=== PATIENT | male | born 1950 | race Caucasian/White ===

== ENCOUNTER 2018-09-19 16:45 | Inpatient (IN) | payer MEDICARE ==
[~2018-09-19] VITALS: Ht 182.9 cm; Wt 99.1 kg
[~2018-09-19 16:45] MED LIST: ACET325T21 PO; ACID1GRA3 PO; AMLO5TAB7 PO; ASCO500T6 PO; BISA10SU65 PR; CARV-39 PO; CARV25TA12 PO; DIGO125T PO; DOCU-131 PO; ENOX80SY4 SQ; FERR325T18 PO; FOLI-17 PO; FURO40TA6 PO; LABE5VIA13 IV; LINE600T37 PO; LISI5TAB7 PO; MAGN400T26 PO; METO25TA91 PO; METR500T PO; ONDA4VIA8 IVP; OXYC1TAB7 PO; OXYC5CAP2 PO; PIPE3.375 IV; POLY17PO5 PO; POTA20TA14 PO; Pharmacy Instruction MC; QUET25TA PO; THIA100T67 PO; TRAM50TA2 PO; ZINC220C5 PO
[2018-09-19 17:53] LABS: BASOPHILS # (AUTO) 0.04 x10^3/uL (0-0.1); BASOPHILS % (AUTO) 1 % (0-1); EOSINOPHILS # (AUTO) 0.25 x10^3/uL (0-0.4); EOSINOPHILS % (AUTO) 4 % (1-7); LYMPHOCYTES # (AUTO) 0.99 x10^3/uL (1-3.4); LYMPHOCYTES % (AUTO) 17 % (22-44); MD NO; MEAN CORPUSCULAR HGB CONC 33.5 g/dL (33.2-36.2); MEAN CORPUSCULAR VOLUME 89.6 fL (81-97); MEAN PLATELET VOLUME 8.4 fL (7.4-10.4); MONOCYTES # (AUTO) 0.72 x10^3/uL (0.2-0.8); MONOCYTES % (AUTO) 12 % (2-9); NEUTROPHILS # (AUTO) 4.02 x10^3/uL (1.8-6.8); NEUTROPHILS % (AUTO) 67 % (42-75); PLATELET COUNT 200 x10^3/uL (130-400); RED BLOOD COUNT 4.47 x10^6/uL (4.38-5.82); RED CELL DISTRIBUTION WIDTH 15.7 % (9.4-14.8)
[2018-09-19 18:01] LABS: ALBUMIN 2.9 g/dL (3.4-5.0); ANION GAP 10 mmol/L (5-15); CALCIUM 8.7 mg/dL (8.5-10.1); CHLORIDE 109 mmol/L (98-107); CREATININE 1.54 mg/dL (0.7-1.3)
[2018-09-19] MEDS ORDERED: FURO20TA3 PO (19:37)
[2018-09-19] MEDS ORDERED: APIX2.5T PO (19:37)
[2018-09-19] MEDS ORDERED: LISI-170 PO (19:37)
[2018-09-19] MEDS ORDERED: SODIUM CHLORIDE FLUSH 10ML SYR IVF PRN (20:00)
[2018-09-19] MEDS ORDERED: SODIUM CHLORIDE 0.9% 1,000 ML IV SCH (20:02)
[2018-09-19 20:20] VITALS: BP 142/78
[2018-09-19] MEDS ORDERED: POLYETHYLENE GLYCOL 17 GM PACKET PO PRN (20:30)
[2018-09-19] MEDS ORDERED: ACETAMINOPHEN 325 MG TABLET PO PRN (20:30)
[2018-09-19] MEDS ORDERED: ONDANSETRON 2MG/ML, 2ML IVPush PRN (20:30)
[2018-09-19] MEDS ORDERED: POTASSIUM CHLORIDE 20 MEQ TAB.ER.PRT PO ONE (20:30)
[2018-09-19] MEDS ORDERED: ONDANSETRON ODT 4 MG PO PRN (20:30)
[2018-09-19] MEDS ORDERED: DILTIAZEM 5 MG/ML, 5ML IVPush PRN (20:30)
[2018-09-19] MEDS ORDERED: DIGOXIN 0.25 MG/ML, 2ML IVPush ONE (20:30)
[2018-09-19 20:51] VITALS: BP 142/78
[2018-09-19] MEDS: BUMETANIDE 1 MG TABLET PO SCH (20:51)
[2018-09-19] MEDS: APIXABAN 2.5 MG TABLET PO SCH (20:52)
[2018-09-19] MEDS: ERYTHROMYCIN OPHTH 0.5%, 1GM EACHEYE SCH (20:52)
[2018-09-20] MEDS: ERYTHROMYCIN OPHTH 0.5%, 1GM EACHEYE SCH ×6 (00:11→22:02)
[2018-09-20 00:56] VITALS: BP 117/61
[2018-09-20 01:20] LABS: CULTURE INDICATED? NO; MICROSCOPIC AUTO
[2018-09-20] MEDS ORDERED: DIGOXIN 0.25 MG/ML, 2ML IVPush ONE (04:30)
[2018-09-20 05:17] LABS: CHLORIDE 111 mmol/L (98-107)
[2018-09-20 05:33] LABS: ANION GAP 10 mmol/L (5-15); CALCIUM 8.9 mg/dL (8.5-10.1); CHOL/HDL RATIO 5.3; CHOLESTEROL, TOTAL 170 mg/dL (140-239); CREATININE 1.44 mg/dL (0.7-1.3); HDL CHOL % 19 % (26-37); HDL CHOLESTEROL (DIRECT) 32 mg/dL (40-60); LDL CHOLESTEROL,CALCULATED 121 mg/dL (54-169); LDL/HDL RATIO 3.8 (0.5-3.0); TRIGLYCERIDES 87 mg/dL (50-200); VLDL CHOLESTEROL 17 mg/dL (0-25)
[2018-09-20] MEDS: APIXABAN 2.5 MG TABLET PO SCH ×2 (08:44→22:04)
[2018-09-20] MEDS: BUMETANIDE 1 MG TABLET PO SCH ×2 (08:44→22:04)
[2018-09-20] MEDS ORDERED: POTASSIUM CHLORIDE 20 MEQ TAB.ER.PRT PO ONE (09:00)
[2018-09-20 11:28] VITALS: BP 118/68
[2018-09-20 14:13] VITALS: BP 102/62
[2018-09-20 19:53] VITALS: BP 151/81
[2018-09-21] VITALS (8 sets, daily range): BP systolic 124–157; BP diastolic 69–105
[2018-09-21] MEDS ORDERED: DILTIAZEM 5 MG/ML, 5ML IVPush ONE (03:30)
[2018-09-21] MEDS: ERYTHROMYCIN OPHTH 0.5%, 1GM EACHEYE SCH ×5 (03:51→22:22)
[2018-09-21] MEDS ORDERED: METOPROLOL TARTRATE 25 MG TABLET PO SCH (04:00)
[2018-09-21 05:25] LABS: BASOPHILS # (AUTO) 0.06 x10^3/uL (0-0.1); BASOPHILS % (AUTO) 1 % (0-1); EOSINOPHILS # (AUTO) 0.27 x10^3/uL (0-0.4); EOSINOPHILS % (AUTO) 4 % (1-7); LYMPHOCYTES # (AUTO) 0.98 x10^3/uL (1-3.4); LYMPHOCYTES % (AUTO) 15 % (22-44); MD NO; MEAN CORPUSCULAR HEMOGLOBIN 29.9 pg (27.5-34.5); MEAN CORPUSCULAR HGB CONC 33.1 g/dL (33.2-36.2); MEAN CORPUSCULAR VOLUME 90.2 fL (81-97); MEAN PLATELET VOLUME 8.7 fL (7.4-10.4); MONOCYTES # (AUTO) 0.65 x10^3/uL (0.2-0.8); MONOCYTES % (AUTO) 10 % (2-9); NEUTROPHILS # (AUTO) 4.51 x10^3/uL (1.8-6.8); NEUTROPHILS % (AUTO) 70 % (42-75); PLATELET COUNT 190 x10^3/uL (130-400); RED BLOOD COUNT 4.74 x10^6/uL (4.38-5.82); RED CELL DISTRIBUTION WIDTH 15.8 % (9.4-14.8)
[2018-09-21 05:30] LABS: ALBUMIN 2.8 g/dL (3.4-5.0); ANION GAP 12 mmol/L (5-15); CALCIUM 8.9 mg/dL (8.5-10.1); CHLORIDE 108 mmol/L (98-107)
[2018-09-21 05:46] LABS: ALANINE AMINOTRANSFERASE 13 U/L (12-78); ALKALINE PHOSPHATASE 133 U/L (45-117); BILIRUBIN,TOTAL 0.7 mg/dL (0.2-1.0); CREATININE 1.24 mg/dL (0.7-1.3); TOTAL PROTEIN 7.2 g/dL (6.4-8.2)
[2018-09-21] MEDS: DIGOXIN 0.125 MG TABLET PO SCH (07:39)
[2018-09-21] MEDS: APIXABAN 2.5 MG TABLET PO SCH ×2 (07:40→22:22)
[2018-09-21] MEDS: BUMETANIDE 1 MG TABLET PO SCH (07:40)
[2018-09-21] MEDS ORDERED: GUAIFENESIN 200 MG TABLET PO PRN (08:30)
[2018-09-21] MEDS ORDERED: CARVEDILOL 12.5 MG TABLET ONE (08:38)
[2018-09-21] MEDS ORDERED: POTASSIUM CHLORIDE 20 MEQ TAB.ER.PRT ONE (08:39)
[2018-09-21] MEDS: CARVEDILOL 12.5 MG TABLET PO SCH ×2 (08:41→16:48)
[2018-09-21] MEDS: POTASSIUM CHLORIDE 20 MEQ TAB.ER.PRT PO SCH (08:41)
[2018-09-21] MEDS ORDERED: METOPROLOL 1 MG/ML, 5ML ONE (10:04)
[2018-09-21] MEDS: LISINOPRIL 20 MG TABLET PO SCH (10:06)
[2018-09-21] MEDS: METOPROLOL 1 MG/ML, 5ML IVPush PRN (10:07)
[2018-09-21] MEDS: FUROSEMIDE 40 MG TABLET PO SCH (16:48)
[2018-09-21] MEDS: ATORVASTATIN 20 MG TABLET PO SCH (22:21)
[2018-09-22] VITALS (7 sets, daily range): BP systolic 115–170; BP diastolic 71–97
[2018-09-22] MEDS: ERYTHROMYCIN OPHTH 0.5%, 1GM EACHEYE SCH ×6 (01:07→21:59)
[2018-09-22] MEDS: METOPROLOL 1 MG/ML, 5ML IVPush PRN (03:54)
[2018-09-22 06:00] LABS: ANION GAP 9 mmol/L (5-15); CALCIUM 9.6 mg/dL (8.5-10.1); CHLORIDE 105 mmol/L (98-107); CREATININE 1.37 mg/dL (0.7-1.3)
[2018-09-22] MEDS: CARVEDILOL 12.5 MG TABLET PO SCH ×2 (06:22→16:51)
[2018-09-22] MEDS: LISINOPRIL 20 MG TABLET PO SCH (07:59)
[2018-09-22] MEDS: DIGOXIN 0.125 MG TABLET PO SCH (07:59)
[2018-09-22] MEDS: FUROSEMIDE 40 MG TABLET PO SCH ×2 (07:59→16:51)
[2018-09-22] MEDS: POTASSIUM CHLORIDE 20 MEQ TAB.ER.PRT PO SCH (07:59)
[2018-09-22] MEDS: APIXABAN 2.5 MG TABLET PO SCH ×2 (07:59→20:23)
[2018-09-22] MEDS: BENZONATATE 100 MG CAPSULE PO SCH ×3 (09:51→20:23)
[2018-09-22 10:38] LABS: RAPID INFLUENZA A Negative (Negative); RAPID INFLUENZA B Negative (Negative)
[2018-09-22] MEDS ORDERED: ATOR20TA9 PO (15:45)
[2018-09-22] MEDS ORDERED: POTA20TA6 PO (15:45)
[2018-09-22] MEDS: ATORVASTATIN 20 MG TABLET PO SCH (20:23)
[2018-09-23] MEDS: ERYTHROMYCIN OPHTH 0.5%, 1GM EACHEYE SCH ×3 (02:06→09:51)
[2018-09-23 02:22] VITALS: BP 106/69
[2018-09-23] MEDS: CARVEDILOL 12.5 MG TABLET PO SCH (06:16)
[2018-09-23 06:18] VITALS: BP 131/85
[2018-09-23 07:00] VITALS: BP 121/75
[2018-09-23] MEDS: FUROSEMIDE 40 MG TABLET PO SCH (08:11)
[2018-09-23] MEDS: POTASSIUM CHLORIDE 20 MEQ TAB.ER.PRT PO SCH (08:11)
[2018-09-23] MEDS: LISINOPRIL 20 MG TABLET PO SCH (08:12)
[2018-09-23] MEDS: APIXABAN 2.5 MG TABLET PO SCH (08:12)
[2018-09-23] MEDS: BENZONATATE 100 MG CAPSULE PO SCH (08:12)
[2018-09-23] MEDS: DIGOXIN 0.125 MG TABLET PO SCH (08:12)
[2018-09-23 08:13] VITALS: BP 119/67
[2018-09-23] MEDS ORDERED: ERYT1OIN5 EACHEYE (10:33)
== END 2018-09-23 11:52 | DRG 291 ==
LOC: ED 19:08 → EDIP 19:32 → SUATTDRO 20:02 → 5SO 20:18
PROVIDERS: ADMIT Hospitalist; ATTEND Family Medicine
DX: I13.0 Hypertensive heart and chronic kidney disease with heart failure and stage 1 through stage 4 chronic kidney disease, or unspecified chronic kidney disease (principal); I50.43 Acute on chronic combined systolic (congestive) and diastolic (congestive) heart failure; E43 Unspecified severe protein-calorie malnutrition; D68.69 Other thrombophilia; D63.8 Anemia in other chronic diseases classified elsewhere; E78.5 Hyperlipidemia, unspecified; F17.210 Nicotine dependence, cigarettes, uncomplicated; H10.9 Unspecified conjunctivitis; I08.0 Rheumatic disorders of both mitral and aortic valves; I25.5 Ischemic cardiomyopathy; I45.81 Long QT syndrome; I48.2 Chronic atrial fibrillation; N18.9 Chronic kidney disease, unspecified; Z59.0 Homelessness; Z91.14 Patient's other noncompliance with medication regimen; Z68.29 Body mass index [BMI] 29.0-29.9, adult
CPT/HCPCS: 36415; 71045; 80048; 80053; 80061; 80162; 81001; 82040; 83735; 83880; 84100; 84443; 85025; 87400; 90656; 93005; 93306; 99285; G0378; J1160; J7030